=== PATIENT | male | born 1970 | race Caucasian/White ===

== ENCOUNTER 2023-01-30 22:20 | Inpatient (IN) | payer MEDICAID, MEDICARE ==
[~2023-01-30] VITALS: Ht 170.2 cm; Wt 75.0 kg
[~2023-01-30 22:20] MED LIST: GABA-1201 PO; LEVE500T20 PO; LORA10TA7 PO; PANT40TA PO; QUET300T5 PO
[2023-01-31 02:12] LABS: AMPHET/METH SCREEN,URINE NEGATIVE (NEGATIVE); BARBITURATE SCREEN, URINE NEGATIVE (NEGATIVE); BENZODIAZEPINES SCREEN,URINE NEGATIVE (NEGATIVE); CANNABINOID SCREEN,URINE POSITIVE (NEGATIVE); COCAINE SCREEN,URINE NEGATIVE (NEGATIVE); METHADONE SCREEN, URINE NEGATIVE (NEGATIVE); OPIATE SCREEN,URINE NEGATIVE (NEGATIVE); PHENCYCLIDINE SCREEN,URINE NEGATIVE (NEGATIVE)
[2023-01-31 02:43] LABS: ANION GAP 12 mmol/L (8-16); CALCIUM, TOTAL 8.9 mg/dL (8.8-10.5); CARBON DIOXIDE 25 mmol/L (22-29); CHLORIDE 102 mmol/L (98-107); CREATININE 0.61 mg/dL (0.60-1.30); GLOMERULAR FILTR. RATE CALC > 60 mL/min (>60); GLUCOSE,RANDOM 97 mg/dL (70-110); SODIUM SERUM 139 mmol/L (136-145); UREA NITROGEN, BLOOD 8 mg/dL (7-18)
[2023-01-31 02:49] LABS: ALANINE AMINOTRANSFERASE 20 U/L (12-78); ALBUMIN 3.6 g/dL (3.4-5.0); ALKALINE PHOSPHATASE 96 U/L (46-116); ASPARTATE AMINOTRANSFERASE 23 U/L (15-37); BILIRUBIN,TOTAL 0.1 mg/dL (0.1-1.0); TOTAL PROTEIN, SERUM 6.8 g/dL (6.4-8.2)
[2023-01-31 07:25] LABS: COVID AG,FIA SOURCE NASAL SWAB
[2023-01-31] MEDS ORDERED: NICOTINE 14 MG/24 HOUR PATCH TD ONE (16:00)
[2023-01-31] MEDS ORDERED: MAG HYDROX/AL HYDROX/SIMETH ES 30 ML SUSPENSION UDCUP PO PRN (17:30)
[2023-01-31] MEDS ORDERED: ZOLPIDEM TARTRATE 10 MG TABLET PO ONE (19:45)
[2023-02-01] MEDS ORDERED: OLANZapine 5 MG TABLET PO ONE (09:15)
[2023-02-01] MEDS ORDERED: NICOTINE 21 MG/24 HOUR PATCH TD ONE (09:15)
[2023-02-01] MEDS ORDERED: LORazepam 2 MG TABLET PO ONE (09:15)
[2023-02-01] MEDS ORDERED: HALOPERIDOL 5 MG TABLET PO PRN (13:15)
[2023-02-01] MEDS ORDERED: ZOLPIDEM TARTRATE 10 MG TABLET PO PRN (13:15)
[2023-02-01] MEDS ORDERED: ALBUTEROL SULFATE HFA 90 MCG/PUFF 8 GM INHALER IH PRN (21:30)
[2023-02-01 22:55] VITALS: BP 134/87
[2023-02-02] MEDS ORDERED: PETROLATUM,WHITE 28 GM JELLY TP PRN (07:00)
[2023-02-02] MEDS ORDERED: LOPERAMIDE HCL 2 MG CAPSULE PO PRN (07:00)
[2023-02-02] MEDS ORDERED: ONDANSETRON HCL 4 MG TABLET PO PRN (07:00)
[2023-02-02] MEDS ORDERED: IBUPROFEN 400 MG TABLET PO PRN (07:00)
[2023-02-02] MEDS ORDERED: DOCUSATE SODIUM 100 MG CAPSULE PO PRN (07:00)
[2023-02-02] MEDS ORDERED: ALBUTEROL SULFATE HFA 90 MCG/PUFF 8 GM INHALER IH PRN (07:00)
[2023-02-02] MEDS ORDERED: MAG HYDROX/AL HYDROX/SIMETH ES 30 ML SUSPENSION UDCUP PO PRN (07:00)
[2023-02-02] MEDS ORDERED: GuaiFENesin/D-METHORPHAN [SUGAR-FREE] 200-20MG/10 ML SYRUP UDCUP PO PRN (07:00)
[2023-02-02] MEDS ORDERED: CloNIDine HCL 0.1 MG TABLET PO PRN (07:00)
[2023-02-02] MEDS ORDERED: MAGNESIUM HYDROXIDE SUSPENSION 30 ML UDCUP PO PRN (07:00)
[2023-02-02] MEDS ORDERED: ACETAMINOPHEN 325 MG TABLET PO PRN (07:00)
[2023-02-02] MEDS ORDERED: NICOTINE 14 MG/24 HOUR PATCH TD PRN (07:00)
[2023-02-02] MEDS: NICOTINE 21 MG/24 HOUR PATCH TD SCH (08:21)
[2023-02-02] MEDS: LORATADINE 10 MG TABLET PO SCH (08:21)
[2023-02-02] MEDS: PROPRANOLOL HCL 10 MG TABLET PO SCH ×2 (08:21→16:32)
[2023-02-02] MEDS: LevETIRAcetam 500 MG TABLET PO SCH ×2 (08:21→16:32)
[2023-02-02] MEDS: PANTOPRAZOLE SODIUM 40 MG DR TABLET PO SCH (08:23)
[2023-02-02 12:27] VITALS: BP 136/93
[2023-02-02] MEDS: GABAPENTIN 400 MG CAPSULE PO SCH ×2 (16:34→20:44)
[2023-02-02] MEDS: QUEtiapine FUMARATE 300 MG ER TABLET PO SCH (20:45)
[2023-02-02 23:46] VITALS: BP 103/60
[2023-02-03] MEDS: GABAPENTIN 400 MG CAPSULE PO SCH ×3 (08:42→20:25)
[2023-02-03] MEDS: PANTOPRAZOLE SODIUM 40 MG DR TABLET PO SCH (08:42)
[2023-02-03] MEDS: LevETIRAcetam 500 MG TABLET PO SCH ×2 (08:42→16:54)
[2023-02-03] MEDS: PROPRANOLOL HCL 10 MG TABLET PO SCH ×2 (08:42→16:52)
[2023-02-03] MEDS: LORATADINE 10 MG TABLET PO SCH (08:43)
[2023-02-03] MEDS: NICOTINE 21 MG/24 HOUR PATCH TD SCH (08:43)
[2023-02-03 09:35] VITALS: BP 131/76
[2023-02-03 16:00] VITALS: BP 116/79
[2023-02-03] MEDS: MUPIROCIN CALCIUM 2% 22 GM OINTMENT TP SCH (16:53)
[2023-02-03] MEDS: LORazepam 2 MG TABLET PO PRN (18:11)
[2023-02-03] MEDS: QUEtiapine FUMARATE 300 MG ER TABLET PO SCH (20:25)
[2023-02-03 20:35] VITALS: BP 104/74
[2023-02-04] MEDS: LORATADINE 10 MG TABLET PO SCH (08:52)
[2023-02-04] MEDS: PROPRANOLOL HCL 10 MG TABLET PO SCH (08:52)
[2023-02-04] MEDS: GABAPENTIN 400 MG CAPSULE PO SCH (08:52)
[2023-02-04] MEDS: PANTOPRAZOLE SODIUM 40 MG DR TABLET PO SCH (08:52)
[2023-02-04] MEDS: LevETIRAcetam 500 MG TABLET PO SCH (08:52)
[2023-02-04] MEDS: NICOTINE 21 MG/24 HOUR PATCH TD SCH (08:53)
[2023-02-04] MEDS: MUPIROCIN CALCIUM 2% 22 GM OINTMENT TP SCH (08:53)
[2023-02-04] MEDS: LORazepam 2 MG TABLET PO PRN (08:55)
[2023-02-04] MEDS ORDERED: GABA-1201 PO (13:14)
[2023-02-04] MEDS ORDERED: QUET300T91 PO (13:14)
[2023-02-04] MEDS ORDERED: PANT-31 PO (13:14)
[2023-02-04] MEDS ORDERED: LORA10TA60 PO (13:14)
[2023-02-04] MEDS ORDERED: LEVE500T8 PO (13:14)
[2023-02-04] MEDS ORDERED: PROP10TA72 PO (13:14)
== END 2023-02-04 15:30 | disposition home or self-care (01) | DRG 885 ==
LOC: EMS 22:22 → 3EI 02-01 16:02 → 3EX 02-01 18:47
PROVIDERS: ADMIT Psychiatry & Neurology Psychiatry; ATTEND Psychiatry & Neurology Psychiatry
DX: F25.1 Schizoaffective disorder, depressive type (principal); R45.851 Suicidal ideations; F32.9 Major depressive disorder, single episode, unspecified; F10.10 Alcohol abuse, uncomplicated; J44.9 Chronic obstructive pulmonary disease, unspecified; F17.210 Nicotine dependence, cigarettes, uncomplicated; Z20.822 Contact with and (suspected) exposure to COVID-19; Y90.9 Presence of alcohol in blood, level not specified; K21.9 Gastro-esophageal reflux disease without esophagitis; G40.909 Epilepsy, unspecified, not intractable, without status epilepticus; Y90.3 Blood alcohol level of 60-79 mg/100 ml; F12.10 Cannabis abuse, uncomplicated; Z88.0 Allergy status to penicillin; Z88.8 Allergy status to other drugs, medicaments and biological substances; Z79.899 Other long term (current) drug therapy
CPT/HCPCS: 80053; 80307; 87081; 93005; 99285; G0378; G0480; J3535

== ENCOUNTER 2023-02-26 21:07 | Emergency (ER) | payer MEDICARE, MEDICAID ==
[~2023-02-26] VITALS: Ht 170.2 cm; Wt 84.0 kg
[~2023-02-26 21:07] MED LIST changes: -LEVE500T20 PO; +LEVE500T8 PO; +LORA10TA60 PO; -LORA10TA7 PO; +PANT-31 PO; -PANT40TA PO; +PROP10TA72 PO; -QUET300T5 PO; +QUET300T91 PO
[2023-02-26 23:17] VITALS: BP 124/76
[2023-02-26] MEDS ORDERED: ONDANSETRON HCL 4 MG/2 ML VIAL IVP ONE (23:30)
[2023-02-26] MEDS ORDERED: MORPHINE SULFATE 2 MG/ML SYRINGE IVP ONE (23:30)
[2023-02-26] MEDS ORDERED: SODIUM CHLORIDE 0.9% 1,000 ML IV ONE (23:30)
[2023-02-27 00:30] LABS: BASOPHILS % (AUTO) 1.7 % (0.0-2.0); EOSINOPHILS % (AUTO) 9.6 % (1.0-6.0); HEMATOCRIT 38.4 % (41-53); LYMPHOCYTES # (AUTO) 3.5 K/uL (1.0-4.8); LYMPHOCYTES % (AUTO) 39.3 % (22.0-44.0); MEAN CORPUSCULAR HEMOGLOBIN 30.2 pg (26.0-34.0); MEAN CORPUSCULAR HGB CONC 33.8 G/dL (31.0-37.0); MEAN CORPUSCULAR VOLUME 89 fL (80-100); MONOCYTES # (AUTO) 1.1 K/uL (0.1-1.0); MONOCYTES % (AUTO) 12.5 % (2.0-9.0); NEUTROPHILS # (AUTO) 3.3 K/uL (1.8-7.7); NEUTROPHILS % (AUTO) 36.9 % (40.0-70.0); PLATELET COUNT (AUTO) 334 K/uL (150-450); RED BLOOD CELL COUNT(AUTO) 4.31 MIL/uL (4.50-5.90); RED CELL DISTRIBUTION WIDTH 16.4 % (11.5-14.5)
[2023-02-27 00:40] LABS: ANION GAP 6 mmol/L (8-16); CALCIUM, TOTAL 9.1 mg/dL (8.8-10.5); CARBON DIOXIDE 30 mmol/L (22-29); CHLORIDE 102 mmol/L (98-107); CREATININE 0.83 mg/dL (0.60-1.30); GLOMERULAR FILTR. RATE CALC > 60 mL/min (>60); GLUCOSE,RANDOM 84 mg/dL (70-110); POTASSIUM 3.7 mmol/L (3.5-5.1); SODIUM SERUM 138 mmol/L (136-145); UREA NITROGEN, BLOOD 10 mg/dL (7-18)
[2023-02-27 00:46] LABS: ALANINE AMINOTRANSFERASE 19 U/L (12-78); ALBUMIN 3.7 g/dL (3.4-5.0); ALKALINE PHOSPHATASE 91 U/L (46-116); ASPARTATE AMINOTRANSFERASE 24 U/L (15-37); LIPASE 261 U/L (73-393); TOTAL PROTEIN, SERUM 7.4 g/dL (6.4-8.2)
[2023-02-27] MEDS ORDERED: SODIUM CHLORIDE 0.9% 1,000 ML IV ONE (01:00)
[2023-02-27 01:05] LABS: BILIRUBIN,TOTAL 0.1 mg/dL (0.1-1.0)
[2023-02-27 01:20] LABS: APPEARANCE,URINE CLEAR (CLEAR); BILIRUBIN,URINE NEGATIVE (NEGATIVE); GLUCOSE, URINE (UA) NEGATIVE (NEGATIVE); KETONES,URINE NEGATIVE (NEGATIVE); LEUKOCYTE ESTERASE ,URINE NEGATIVE (NEGATIVE); NITRATE,URINE NEGATIVE (NEGATIVE); OCCULT BLOOD,URINE NEGATIVE (NEGATIVE); PROTEIN,URINE NEGATIVE (NEGATIVE); SPECIFIC GRAVITIY, URINE 1.004 (1.003-1.030); UROBILINOGEN,URINE <=1.0 mg/dL (<=1.0)
== END 2023-02-27 04:34 | disposition home or self-care (01) ==
LOC: EMS 21:07
DX: R07.89 Other chest pain (principal); R10.11 Right upper quadrant pain; F10.129 Alcohol abuse with intoxication, unspecified; J44.9 Chronic obstructive pulmonary disease, unspecified; F20.9 Schizophrenia, unspecified; F17.210 Nicotine dependence, cigarettes, uncomplicated; Z88.0 Allergy status to penicillin; Z88.8 Allergy status to other drugs, medicaments and biological substances; Y90.9 Presence of alcohol in blood, level not specified
CPT/HCPCS: 99285; 96374; 71045; 96361; 96375; 80053; 83690; 84484; 85025; 36415; 93005; 81003; 74176; G0480; J7030; J2270; J2405